=== PATIENT | female | born 1970 | race African-American/Black ===

== ENCOUNTER → 2016-10-13 | Outpatient (CLI) | payer OTHER ==
[~2016-10-13] MED LIST: HYDROCHLOROTHIA25 MG PO; JANUVIA PO; LANTUS100 U/ML SQ; METFORMIN PO; MICRONASE5 M2 PO; OMEPRAZOLE20 M1 PO; PRAVASTATIN SOD20 MG PO
[2016-10-13 11:45] LABS: CHOLESTEROL 189 mg/dL (0-200); GLUCOSE FASTING 325 mg/dL (70-110); HDL CHOLESTEROL 66 mg/dL (35-95); LDL CHOLESTEROL 112 mg/dL (-130); LDL/HDL RATIO 2 RATIO (0-4); TRIGLYCERIDES 57 mg/dL (10-160)
== END | disposition home or self-care (01) ==
LOC: CLAB 10:45
PROVIDERS: Surgery
DX: E66.01 Morbid (severe) obesity due to excess calories (principal)
CPT/HCPCS: 36415; 80061; 82947

== ENCOUNTER → 2017-04-26 | Outpatient (CLI) | payer OTHER ==
[2017-04-26 13:47] LABS: CHOLESTEROL 193 mg/dL (0-200); GLUCOSE FASTING 99 mg/dL (70-110); HDL CHOLESTEROL 71 mg/dL (35-95); LDL CHOLESTEROL 116 mg/dL (-130); LDL/HDL RATIO 2 RATIO (0-4); TRIGLYCERIDES 32 mg/dL (10-160)
== END | disposition home or self-care (01) ==
LOC: CLAB 12:52
PROVIDERS: Surgery
DX: E66.01 Morbid (severe) obesity due to excess calories (principal)
CPT/HCPCS: 36415; 80061; 82947

== ENCOUNTER → 2017-04-26 | Outpatient (CLI) | payer SELFPAY | END | disposition home or self-care (01) | LOC: CBAR 08:00 | DX: E66.01 Morbid (severe) obesity due to excess calories (principal) | CPT/HCPCS: 76000 ==